=== PATIENT | male | born 1970 | race African-American/Black ===

== ENCOUNTER 2024-10-19 08:40 | Outpatient (CLI) | payer BC, SELFPAY ==
--- NOTE | ~2024-10-19 | CT_ITS ---
EXAMINATION: CT sinus wo con DATE: 10/19/2024 09:03 INDICATION: Chronic ethmoid sinusitis TECHNIQUE: Computed tomography (CT) of the paranasal sinuses was performed without intravenous contra st. The dose-length product was 274.70 mGy-cm. Automated exposure control and iterative reconstructio n technique were employed. COMPARISON: None FINDINGS: There is mucosal thickening of the frontal, there is curvature of the nasal septum. There a re surgical changes of the ostiomeatal units. Mastoids are pneumatized. Maxillary, ethmoid, sphenoid sinuses. Rightward nasal septal deviation. Mastoids are pneumatized. There is mucoperiosteal reaction of the maxillary sinuses. IMPRESSION: 1. Pansinusitis, likely chronic. Reviewed, dictated and finalized at location A.
== END 2024-10-19 08:41 | disposition home or self-care (01) ==
LOC: MICIMG 08:41
PROVIDERS: PCP Internal Medicine; Visit Provider Otolaryngology
DX: J32.2 Chronic ethmoidal sinusitis (principal); J33.8 Other polyp of sinus
CPT/HCPCS: 70486

== ENCOUNTER 2024-12-05 10:01 | Outpatient (CLI) | payer BC, SELFPAY ==
--- OUTSIDE RECORDS SUMMARY | 2024-12-05 10:07 | XMS_ITS | Clinical Summary ---
Author Organization [facility] Address [address], [address] [place] [address] Phone Care Team Providers Care Abstract Maker Name Role Phone Jim Portillo MD Primary Care Provider [phone] Allergies No known active allergies Medications aspirin 81 MG Chewable Tablet Take 81 mg by mouth. 9 Active atorvastatin (LIPITOR) 10 MG Tablet Take 10 mg by mouth. 9 Active Azilsartan-Chl orthalidone 40-12.5 MG Tablet Take 1 Tab by mouth. Active metoprolol Succinate (TOPROL-XL) 25 MG TABLET SR 24 HR Take 25 mg by mouth. Active Multiple Vitamin (MULTI-VITAMIN S) Tablet Take 1 Tab by mouth. Active fluticasone (FLONASE) 50 MCG/ACT Suspension 9 Active sildenafil citrate (VIAGRA) 50 MG Tablet sildenafil 50 mg tablet 1 tab a day as needed only Active montelukast (SINGULAIR) 10 MG Tablet 1 Active albuterol (PROVENTIL, VENTOLIN) (2.5 MG/3ML) 0.083% Nebulizer Soln 1 Active albuterol 108 (90 Base) MCG/ACT Aerosol Solution INHALE 1 PUFF BY MOUTH EVERY 4 TO 6 HOURS NEEDED 1 Active Trelegy Ellipta 200-62.5-25 MCG/INH AEROSOL POWDER, BREATH ACTIVATED 1 Active ipratropium (ATROVENT) 0.03 % Solution ipratropium bromide 21 mcg (0.03 %) nasal spray USE 2 SPRAY(S) IN EACH NOSTRIL EVERY 12 HOURS 1 Active Fasenra Pen 30 MG/ML Solution Auto-injector 1 Active EPINEPHrine (EPIPEN) 0.3 MG/0.3ML Solution Auto-injector 1 Active Mounjaro 5 MG/0.5ML Solution Pen-injector INJECT 5 MG SUBCUTANEOUSLY ONCE A WEEK 3 Active levothyroxine (SYNTHROID) 200 MCG Tablet TAKE 1 TABLET BY MOUTH ONCE DAILY IN THE MORNING 3 Active cetirizine (ZyrTEC) 10 MG Tablet Take 10 mg by mouth daily. 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 Immunizations Immunization Administration Dates Next Due Influenza Vaccine 01/16/2020 Influenza Vaccine, MDCK,quadrivalent, pres free 02/07/2019 Influenza Vaccine, Quadrivalent, PF 01/16/2020 Pneumococcal Vaccine Adult - 23 Valent 9 TDAP Vaccine 06/21/2016 Zoster Vaccine Recombinant 03/30/2020,01/16/2020 Social History Tobacco Use Types Packs/Day Years Used Date Smoking Tobacco: Former Cigarettes 1 30 0 06/22/1988 - 06/22/2018 Smokeless Tobacco: Never Tobacco Cessation:Counseling Given: Not Answered Alcohol Use Standard Drinks/Week Comments Yes 0 (1 standard drink = 0.6 oz pur e alcohol) PHQ-2 Answer Date Recorded Total Score - Questions 1-9 0 04/0 10/2021 Sex and Gender Information Value Date Recorded Sex Assigned at Not on file Legal Sex Male 11:29 AM CDT Gender Identity Not on file Sexual Orientation Not on file Last Filed Vital Signs Vital Sign Reading Time Taken Comments Blood Pressure 130/90 03/16/2024 9:15 AM CDT Pulse 71 03/16/2024 9:15 AM CDT Temperature 36.5 C (97.7 F) 03/16/2024 9:15 AM CDT Respiratory Rate 16 03/16/2024 9:15 AM CDT Oxygen Saturation 98% 03/16/2024 9:15 AM CDT Inhaled Oxygen Concentration - - Weight 120.8 kg (266 lb 6.4 oz) 03/16/2024 9:15 AM CDT Height 180.3 cm (5' 11) 03/16/2024 9:15 AM CDT Body Mass Index 37.16 03/16/2024 9:15 AM CDT Plan of Treatment Upcoming Encounters Date Type Department Care Team (Late st Contact Info) Description 03/15/2025 8:45 AM CDT Lab [facility] [address] [address] Lab, [facility] 03/15/2025 9:00 AM CDT Office Visit [facility] [address] [phone] Sachin Jeffrey MD [address] [place] [phone] Health Maintenance Due Date Last Done Comments Hepatitis C Virus (HCV) Screening 1969 Hepatitis B Immunization (1 of 3 - 19+ 3-dose series) 1988 Cologuard 2014 Colonoscopy 2014 Colorectal Cancer Screening 2014 Immunochemical Fecal Occult Blood 2014 Pneumococcal Immunization (50+ years) (2 of 2 - PCV) 02/22/2020 02/21/2019 Lung Cancer Screening 02/08/2022 02/08/2021 , 01/06/2020, 01/06/2020, Additional history exists PSA Discussion 2024 SARS-COV-2 Immunization (7 - Pfizer risk season) 2024 03/02/2024, 03/15/2023, 02/03/2022, Additional history exists Influenza Immunization (#1) 01/18/202506/2023, 03/15/2023, 02/21/2022, Additional history exists Td Immunization Every 10 Years (Adults With 1 Tdap) 02/08/2031 02/08/2021, 06/21/2016 Respiratory Syncytial Virus (RSV) Immunization (Adult) (1 - 1-dose 75+ series) 2044 Pneumococcal Immunization Combined Discontinued 02/21/2019 Zoster Immunization Completed 03/30/2020, 0 DTaP/Tdap/Td Immunization Discontinued 02/08/2021, 06/2016 Human Papillomavirus (HPV) Immunization Aged Out No longer eligible based on patient's age to complete this topic Meningococcal Immunization (ACWY) Aged Out No longer eligible based on patient's age to complete this topic Rotavirus Immunization Aged Out No lo nger eligible based on patient's age to complete this topic Procedures Procedure Name Priority Date/Time Associated Diagnosis Comments CT CHEST W CONTRAST Routine 02/08/2021 9:26 AM CDT 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 COMPARISON:. Most recent study 01/06/2020 TECHNIQUE: Helical imaging of the chest obtained with the intravenous administration of contrast. A dose lowering technique was used for this procedure, which may include, but is not limited to, dose reduction technique(s), automated exposure control techniques, use of iterative reconstruction techniques, and ALARA (as low as reasonably achievable) or ALARA/IMAGE Gently techniques. FINDINGS: CARDIOVASCULAR: Cardiac size and configuration are within normal limits. The aorta is intact without aneurysm or dissection. The pulmonary vasculature is intact without pulmonary embolism. No pericardial fluid is seen LYMPHATICS: No suspicious lymphadenopathy is appreciated. PULMONARY:No pulmonary nodules or masses are appreciated. No pleural fluid or endobronchial disease is appreciated. MUSCULOSKELETAL: No lytic or blastic lesions are seen. No destructive lesions identified. No pectoralis mass is seen. 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 Rosai Amanda diseaseprevious left chest wall mass. COMPARISON:. Most recent study 01/06/2020 TECHNIQUE: Helical imaging of the chest obtained with the intravenous administrationof contrast. A dose lowering technique was used for this procedure, which may include,but is not limited to, dose reduction technique(s), automated exposurecontrol techniques, use of iterative reconstruction techniques, and ALARA(as low as reasonably achievable) or ALARA/IMAGE Gently techniques. FINDINGS: CARDIOVASCULAR: Cardiac size and configuration are within normal limits.The aorta is intact without aneurysm or dissection. The pulmonaryvasculature is intact without pulmonary embolism. No pericardial fluid isseen LYMPHATICS: No suspicious lymphadenopathy is appreciated. PULMONARY:No pulmonary nodules or masses are appreciated. No pleuralfluid or endobronchial disease is appreciated. MUSCULOSKELETAL: No lytic or blastic lesions are seen. No destructivelesions identified. No pectoralis mass is seen. UPPER ABDOMEN: Intact IMPRESSION No acute abnormality is appreciated Electronically signed by: DONTAE ROONEY MD Date of Signature: 02/08/2021 09:47:45 Snow Guzmna APRN, CIRCULATION MANAGER IMG CT ORDERABLES Final Result from Last 3 Months or Most Recently Relevant to Health Maintenance Insurance [facility] Care Teams Abstract Maker Relationship Specialty Start Date End Date Jim Portillo MD PCP - General Internal Medicine 08/08/18
--- OUTSIDE RECORDS SUMMARY | 2024-12-05 10:07 | XMS_ITS | Encounter Summary ---
Author Organization [facility] Address [address] [place] [address] Care Team Providers Care Cheese Cooker Name Role Phone Jone Villa MD Primary Care Provider [phone] Eleno Perez MD Unavailable [phone] Encounter Details Date Type Department Care Team (Late st Contact Info) Description 11/14/2022 [employer] Message [facility] [address] [place], [place] [address] [employer], [facility] Provider Air Quality Message Social History Tobacco Use Types Packs/Day Years Used Date Smoking Tobacco: Former Cigarettes 1 30 0 05/1988 - 05/2018 Smokeless Tobacco: Never Alcohol Use Standard Drinks/Week Comments Yes 3.3 (1 standard drink = 0.6 oz p ure alcohol) AUDIT-C Answer Date Recorded Frequency of Alcohol Consumption 2-3 times a wee k 04/20/2020 Average Number of Drinks 1 or 2 020 Frequency of Binge Drinking Not on file 06/2019 PHQ-2 Answer Date Recorded Patient Health Questionnaire-2 Score 0 08/15/2022 Sex and Gender Information Value Date Recorded Sex Assigned at Male 06/22/2024 5:42 AM HAND EDGE BANDER Legal Sex Male 9:10 PM CDT Gender Identity Not on file Sexual Orientation Not on file documented as of this encounter Plan of Treatment Not on file documented as of this encounter Visit Diagnoses Not on filedocumented in this encounter Additional Health Concerns Assessment Noted Time PHQ-9 Depression Total Score: 0 07/20/19 22 9:43 AM HAND EDGE BANDER documented as of this encounter Care Teams Cheese Cooker Relationship Specialty Start Date End Date Jone Villa MD [address] [facility] [address] [place] [address] PCP - General INTERNAL MEDICINE 01/08/18 Eleno Perez MD [address] [facility]. [address] [place] [address] Taft Reference Archivist CARDIOVASCULAR DISEASE 05/14/18 documented as of this encounter
--- OUTSIDE RECORDS SUMMARY | 2024-12-05 10:07 | XMS_ITS | Clinical Summary ---
Author Organization [facility] Address [address] [place] [address] Care Team Providers Care Cork Insulation Installer Name Role Phone Jone Villa MD Primary Care Provider [phone] Eleno Perez MD Unavailable Allergies No known active allergies Medications Azilsartan-Chlor thalidone 40-12.5 MG Tab Take 1 tablet by mouth daily. Active metoprolol succinate 25 MG 24 hr tablet Take 1 tablet (25 mg total) by mouth daily. Active multivitamin tablet Take 1 tablet by mouth daily. Active aspirin 81 MG chewable tablet Chew 1 tablet (81 mg total) by mouth every other day. 30 tablet 07/23/19 19 Active atorvastatin 10 MG tablet Take 1 tablet (10 mg total) by mouth nightly at bedtime. 30 tablet 07/23/19 19 Active fluticasone propionate 50 MCG/ACT nasal spray 2 sprays by Each Nostril route daily. 5 08/07/19 19 Active ibuprofen 600 MG tablet Take 1 tablet (600 mg total) by mouth every 6 (six) hours as needed for Pain. Active sildenafil 50 MG tablet Take 1 tablet (50 mg total) by mouth as needed for Erectile Dysfunction. Active IPRATROPIUM 0.03 % nasal sprayIndications :Environmental and seasonal allergies USE 2 SPRAY(S) IN EACH NOSTRIL EVERY 12 HOURS 30 mL 06/29/19 21 Active Additional Information Patient taking differently: 2 spray Nasal 2 times daily, Reported on 08/31/2024 levothyroxine 150 MCG tablet Take 1 tablet (150 mcg total) by mouth daily. 06/30/19 21 Active EPINEPHrine 0.3 MG/0.3ML injectionIndicat ions:Severe persistent reactive airway disease without complication ([facility]) Inject 0.3 mLs (0.3 mg total) into the muscle as needed for Anaphylaxis. 1 each 1 10/06/19 21 Active MONTELUKAST 10 MG tabletIndication s:Environmental and seasonal allergies TAKE 1 TABLET BY MOUTH NIGHTLY AT BEDTIME 30 tablet 06/05/19 22 Active levothyroxine (SYNTHROID) 200 MCG tablet levothyroxine 200 mcg tablet Active MOUNJARO 5 MG/0.5ML injection INJECT 1 DOSE OF 5 MG SUBCUTANEOUSLY ONCE A WEEK Active albuterol sulfate HFA 108 (90 Base) MCG/ACT inhalerIndicatio ns:MANLEY (dyspnea on exertion) INHALE 2 PUFFS BY MOUTH EVERY 4 HOURS NEEDED FOR SHORTNESS OF BREATH AND FOR WHEEZING 9 g 01/13/20 24 Active benralizumab (FASENRA PEN) 30 MG/ML injection (pen)Indications :Severe persistent reactive airway disease without complication ([facility]) Inject 1 mL (30 mg total) into the skin Once every eight weeks. 1 each 5 05/27/19 25 Active Fluticasone-Umec lidin-Vilant (TRELEGY ELLIPTA) 200-62.5-25 MCG/ACT AEROSOL POWDER, BREATH ACTIVATEDIndicat ions:Severe persistent reactive airway disease without complication ([facility]) INHALE 1 PUFF BY MOUTH ONCE DAILY 180 each 10/21/19 25 Active Active Problems Problem Noted Date Diagnosed Date Severe persistent reactive a irway disease without complication ([facility]) 09/28/2020 MANLEY (dyspnea on exertion) 04/20/2020 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 19 Environmental and seasonal allergies 11/21/2018 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 Chest mass 07/30/2018 Essential hypertension 05/15/2018 Tobacco abuse 05/15/2018 Chest pain 05/10/2018 Obesity 10/10/2016 Obstructive sleep apnea 10/10/2016 Hypertension Resolved Problems Problem Noted Date Diagnosed Date Resolved Date Encounter for preventive health examination 10/08/2016 01/29/2020 Encounters Date Type Department Care Team Description 12/03/2024 Telephone [facility] [address] [place] [phone] Jim Hoyt MD Reschedule 09/11/2024 Scan HEALTH INFO SRVCS Scanned, Doc Med Group from Last 3 Months Immunizations Immunization Administration Dates Next Due Flucelvax 6 Months+ (Prefill ed Syringe) 02/07/2019 Fluzone 6 Months+ Quad (0.5 mL Prefilled Syringe) 01/16/2020 Influenza (Generic) 03/15/2023,02/07/2019 Influenza Adult (Generic) 02/21/2022,,01/16/2020,2018 PFIZER COVID-19 (12+) MRNA, LNP-S, PF, SHANNA-SUCROSE, 30 MCG/0.3 ML (COMIRNATY) 03/15/2023 PFIZER COVID-19 (ORIGINAL FORMULATION, PURPLE CAP) mRNA, LNP-S, PF, 30 MCG/0.3 ML DOSE 02/03/2022,04/07/2021,09/14/2020,2020 Pneumococcal (Pneumovax 23) 02/21/2019 Shingrix 03/30/2020,01/16/2020 Tdap (Generic) 02/08/2021,06/21/2016 Family History Medical History Relation Comments None Neg Hx Social History Tobacco Use Types Packs/Day Years Used Date Smoking Tobacco: Former Cigarettes 1 30 0 05/1988 - 05/2018 Smokeless Tobacco: Never Tobacco Cessation:Counseling Given: Yes Alcohol Use Standard Drinks/Week Comments Yes 3.3 (1 standard drink = 0.6 oz p ure alcohol) AUDIT-C Answer Date Recorded Frequency of Alcohol Consumption 2-3 times a wee k 04/20/2020 Average Number of Drinks 1 or 2 020 Frequency of Binge Drinking Not on file 06/2019 PHQ-2 Answer Date Recorded Patient Health Questionnaire-2 Score 0 05/25/2024 Sex and Gender Information Value Date Recorded Sex Assigned at Male 06/22/2024 5:42 AM FORENSIC SCIENCE EXAMINER Legal Sex Male 9:10 PM CDT Gender Identity Not on file Sexual Orientation Not on file Last Filed Vital Signs Vital Sign Reading Time Taken Comments Blood Pressure 122/83 08/31/2024 7:54 AM CDT Pulse 69 08/31/2024 7:54 AM CDT Temperature 36.3 C (97.4 F) 03/02/2024 10:14 AM CDT Respiratory Rate 16 08/31/2024 7:54 AM CDT Oxygen Saturation 98% 08/31/2024 7:54 AM CDT ra Inhaled Oxygen Concentration - - Weight 116.6 kg (257 lb) 08/31/2024 7:54 AM CDT Height 177.8 cm (5' 10) 08/31/2024 7:54 AM CDT Body Mass Index 36.88 08/31/2024 7:54 AM CDT Plan of Treatment Health Maintenance Due Date Last Done Comments Colorectal Cancer Screening Colonoscopy (10 Years) 1969 Annual Physical 1972 Hepatitis C 1987 Hepatitis B Vaccines (1 of 3 - 19+ 3-dose series) 1988 Lung Cancer Screening 08/31/2025 08/31/2024 , 2023, 05/30/2022, Additional history exists DTaP, Tdap and Td Vaccines (3 - Td or Tdap) 02/08/2031 02/08/2021, 06/21/2016 Zoster Vaccines Completed 03/30/2020, 01/16/2020 COVID-19 Vaccine Completed 03/02/2024, , 02/03/2022, Additional history exists PHQ-2 (Physician [place]) Completed 05/25/2024 Pneumococcal Vaccine: 50+ Years Completed 06/01/2024, 02/21/2019 Meningococcal B Vaccine Aged Out No l onger eligible based on patient's age to complete this topic Meningococcal Vaccine Aged Out No raffy heidy eligible based on patient's age to complete this topic RSV Immunizations Under 20 Months Aged Out No longer eligible based on patient's age to complete this topic Procedures Procedure Name Priority Date/Time Associated Diagnosis Comments CT LUNG SCREENING Routine 08/31/2024 7:1 9 AM CDT Cigarette nicotine dependence in remission from Last 3 Months or Most Recently Relevant to Health Maintenance Results * CT LUNG SCREENING (08/31/2024 7:19 AM CDT) Anatomical Region Laterality Modality Chest Computed Tomogra phy 09/09/2024 8:58 AM CDT Impressions 09/09/2024 9:33 AM CDT IMPRESSION: 1. Lung-RADS Category 2: Benign appearance or behavior. Nodules with a very low likelihood of becoming a clinically active cancer due to size or lack of growth. 2. LUNG-RADS category S: Negative, no new/unknown potentially significant incidental findings requiring urgent additional evaluation. 3. Other incidental findings as above. RECOMMENDATIONS: Follow-up LDCT Chest in 12 months (on or around 08/31/2025). Referred By: JIM HOYT Interpreted By: Otto Batres MD, 09/09/2024 8:58 AM Narrative 09/09/2024 9:33 AM CDT [place] [id number] EXAM: LUNG SCREENING LOW-DOSE CT THORAX WITHOUT CONTRAST DATE: 08/31/2024 HISTORY: Asymptomatic patient meeting NCCN high-risk criteria for lung screening. COMPARISON: 2023 TECHNIQUE: Noncontrast, helical, low-dose CT (LDCT) chest per standard departmental protocol. Automated exposure control was utilized for dose reduction. FINDINGS: Lung Screening Specific (LUNG-RADS): 7.3 mm groundglass right middle lobe nodule axial image 91. Stable. Lung RADS 2. Potentially Significant Incidentals (LUNG-RADS category S): None. Pulmonary Incidentals: None. Other Incidentals: Bilateral gynecomastia. Procedure Note Otto Batres MD - 09/09/2024 [place] [id number] EXAM: LUNG SCREENING LOW-DOSE CT THORAX WITHOUT CONTRAST DATE: 08/31/2024 HISTORY: Asymptomatic patient meeting NCCN high-risk criteria for lungscreening. COMPARISON: 2023 TECHNIQUE: Noncontrast, helical, low-dose CT (LDCT) chest per standarddepartmental protocol. Automated exposure control was utilized for dosereduction. FINDINGS: Lung Screening Specific (LUNG-RADS): 7.3 mm groundglass right middle lobe nodule axial image 91. Stable. LungRADS 2. Potentially Significant Incidentals (LUNG-RADS category S): None. Pulmonary Incidentals: None. Other Incidentals: Bilateral gynecomastia. IMPRESSION: 1. Lung-RADS Category 2: Benign appearance or behavior. Nodules with tarsha low likelihood of becoming a clinically active cancer due to size orlack of growth. 2. LUNG-RADS category S: Negative, no new/unknown potentially significantincidental findings requiring urgent additional evaluation. 3. Other incidental findings as above. RECOMMENDATIONS: Follow-up LDCT Chest in 12 months (on or around08/31/2025). Referred By: JIM HOYT Interpreted By: Otto Batres MD, 09/09/2024 8:58 AM Jim Hoyt MD CT Final Resul t from Last 3 Months or Most Recently Relevant to Health Maintenance Insurance [facility] Care Teams Cork Insulation Installer Relationship Specialty Start Date End Date Jone Villa MD [address] [facility] [address] [place] [id number] PCP - General INTERNAL MEDICINE 01/08/18 Eleno Perez MD [address] [facility]. [address] [place] [address] [place] Bilingual Teacher CARDIOVASCULAR DISEASE 05/14/18
--- OUTSIDE RECORDS SUMMARY | 2024-12-05 10:07 | XMS_ITS | Clinical Summary ---
Author Organization [employer] [facility] Address [address] [place] [address] Care Team Providers Care Magazine Feeder Name Role Phone Unavailable Primary Care Provider Unavailabl e Social History Tobacco Use Types Packs/Day Years Used Date Smoking Tobacco: Never Assessed Sex and Gender Information Value Date Recorded Sex Assigned at Not on file Legal Sex Male 11:15 PM CDT Gender Identity Not on file Sexual Orientation Not on file Plan of Treatment Health Maintenance Due Date Last Done Comments HEPATITIS B VACCINES (1 of 3 - 19+ 3-dose series) 06/21 COLORECTAL SCREENING 2014 Colorectal Cancer Screening 2014 FIT-DNA Q 3 years 2014 FIT/FOBT Q 1 year 2014 Flex Sig/CT Colonography Q 5 years 2014 ZOSTER VACCINE (1 of 2) 2019 INFLUENZA VACCINE (#1) 2024 02/07/2019 DTAP/TDAP/TD VACCINES (2 - Td or Tdap) 06/21/2026
--- OUTSIDE RECORDS SUMMARY | 2024-12-05 10:07 | XMS_ITS | Encounter Summary ---
Author Organization [facility] Address [facility] [place] [address] Care Team Providers Care Curbstone Setter Name Role Phone Jone Villa MD Primary Care Provider [phone] Eleno Perez MD Unavailable [phone] Encounter Details Date Type Department Care Team (Late st Contact Info) Description 10/13/2020 [employer] [facility] Patient Accounts [address] [place] [address] [facility] Provider Notice of your account balance Social History Tobacco Use Types Packs/Day Years [...] on file 06/2019 PHQ-2 Answer Date Recorded PHQ-2 Score - If the patient scores above 3, please move on to questions 3-9 0 09/28/2020 Sex and Gender Information Value Date Recorded Sex Assigned at Male 06/22/2024 5:42 AM BODY TRIMMER UPHOLSTERER Legal Sex Male 9:10 PM CDT Gender Identity Not on file Sexual Orientation Not on file COVID-19 Exposure Response Date Recorded In the last month, have you been in contact with someone who was confirmed or suspected to have Coronavirus / COVID-19? No / Unsure 09/28/2020 8:50 AM CDT documented as of this encounter Plan of Treatment Not on file documented as of this encounter Visit Diagnoses Not on filedocumented in this encounter Care Teams Curbstone Setter Relationship Specialty Start Date End Date Jone Villa MD [address] [facility] [address] [place] [phone] PCP - General INTERNAL MEDICINE 01/08/18 Eleno Perez MD Three [facility]. [facility] [address] [place] [address] [place] Refrigerator Crater CARDIOVASCULAR DISEASE 05/14/18 documented as of this encounter
--- OUTSIDE RECORDS SUMMARY | 2024-12-05 10:07 | XMS_ITS | Encounter Summary ---
Author Organization [facility] Address [address] [place] [address] Phone Care Team Providers Care Loom Changeover Operator Name Role Phone Jmi Portillo MD Primary Care Provider [phone] Encounter Details Date Type Department Care Team (Late st Contact Info) Description 07/13/2020 Telephone [facility] [address] [place] [address] Sachin Jeffrey MD [address] [place] [address] Social History Tobacco Use Types Packs/Day Years Used Date Smoking Tobacco: Former Cigarettes 1 30 0 06/22/1988 - 06/22/2018 Smokeless Tobacco: Never Alcohol Use Standard Drinks/Week Comments Yes 0 (1 standard drink = 0.6 oz pur e alcohol) PHQ-2 Answer Date Recorded Total Score - Questions 1-9 1 12/19 Sex and Gender Information Value Date Recorded Sex Assigned at Not on file Legal Sex Male 11:29 AM CDT Gender Identity Not on file Sexual Orientation Not on file documented as of this encounter Miscellaneous Notes * Telephone Encounter - Delfina Casey - 07/13/2020 1:32 PM CST CONTACTED PATIENT TO R/S HIS MISSED APPT ON 07-13-20. PATIENT AGREES TO RS FOR 07-27-20. LTR MAILED TO PATIENT WITH NEW APPT DATE/TIME. NESS DATABASE ANALYST documented in this encounter Plan of Treatment Upcoming Encounters Date Type Department Care Team (Late st Contact Info) Description 03/15/2025 8:45 AM CDT Lab [facility] [address] [phone] Lab, Cc [facility] 03/15/2025 9:00 AM CDT Office Visit [facility] [address] [phone] Sachin Jeffrey MD [address] [place] [phone] documented as of this encounter Visit Diagnoses Not on filedocumented in this encounter Additional Health Concerns Assessment Noted Time PHQ-9 Depression Total Score: 1 01/13/20 20 8:13 AM CDT documented as of this encounter Care Teams Loom Changeover Operator Relationship Specialty Start Date End Date Jim Portillo MD PCP - General Internal Medicine 08/08/18 documented as of this encounter
--- OUTSIDE RECORDS SUMMARY | 2024-12-05 10:07 | XMS_ITS | Encounter Summary ---
Author Organization [facility] Address [address] [place] [address] Care Team Providers Care Cow Puncher Name Role Phone Jone Villa MD Primary Care Provider [phone] Eleno Perez MD Unavailable [phone] Encounter Details Date Type Department Care Team (Late st Contact Info) Description 11/22/2021 enosiXt Message Enc [facility] Multispecialty Care - [address] [place] [address] Jim Portillo MD [address] [place] [address] [address] [place] [address] Cpap replacement Social History Tobacco Use Types Packs/Day Years [...] please move on to questions 3-9 0 07/19/2021 Sex and Gender Information Value Date Recorded Sex Assigned at Male 06/22/2024 5:42 AM OIL PUMP STATION OPERATOR CHIEF Legal Sex Male 9:10 PM CDT Gender Identity Not on file Sexual Orientation Not on file documented as of this encounter Plan of Treatment Not on file documented as of this encounter Visit Diagnoses Not on filedocumented in this encounter Additional Health Concerns Assessment Noted Time PHQ-9 Depression Total Score: 0 07/20/19 22 9:43 AM OIL PUMP STATION OPERATOR CHIEF documented as of this encounter Care Teams Cow Puncher Relationship Specialty Start Date End Date Jone Villa MD 331 [facility] [address] [place] [phone] PCP - General INTERNAL MEDICINE 01/08/18 Eleno Perez MD Three [facility]. [facility] [address] [place] [address] [place] Finished Hardware Erector CARDIOVASCULAR DISEASE 05/14/18 documented as of this encounter
--- OUTSIDE RECORDS SUMMARY | 2024-12-05 10:07 | XMS_ITS | Patient Health Record ---
Author Organization [facility] Address [address] [place], [place] [address] Care Team Providers Care Drafter Cartographic Name Role Phone ANASTASIATHAO CECI Mccann [phone] Jone Villa Unavailable Unavailable Allergies No Known Allergies Reason For Referral No Information Vital Signs Height-cm 157.48 cm 05/26/2024 Weight-kg 115.67 kg 05/26/2024 Height 62 in 05/26/2024 Weight 255 lbs 05/26/2024 BMI 46.64 kg/m2 05/26/2024 Encounters Encounter Location Date Provider Diagnosis [facility] [place] [address] [id number] 04/20/2024 CECI NICE 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 ; Type 2 diabetes mellitus without complications E11.9 and Pain in right foot M79.671 [facility] [place] [address] [id number] 04/28/2024 CECI NICE 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 ; Type 2 diabetes mellitus without complications E11.9 ; Flat foot [pes planus] (acquired), right foot M21.41 ; Plantar fasciitis M72.2 and Pain in right foot M79.671 [facility] [place] [address] [place], [place] [phone] 05/26/2024 CECI NICE 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 ; Type 2 diabetes mellitus without complications E11.9 ; Flat foot [pes planus] (acquired), right foot M21.41 ; Plantar fasciitis M72.2 and Pain in right foot M79.671 Assessments Encounter Date Diagnosis (ICD Code) Assessment Notes Treatment Notes Treatment Clinical Notes Section Notes 04/20/2024 Type 2 diabetes mellitus without complications (ICD-10 - E11.9) 04/20/2024 Other acquired deformities of right foot (ICD-10 - M21.6X1) 04/28/2024 Type 2 diabetes mellitus without complications (ICD-10 - E11.9) 04/28/2024 Other acquired deformities of right foot (ICD-10 - M21.6X1) Orthotic casting: The patient was casted for functional orthotic devices. This was done in the subtalar joint neutral position in a non-weightbeari ng fashion. The patient will follow-up in 3 weeks time to be dispensed and fitted with the devices. 05/26/2024 Other acquired deformities of right foot (ICD-10 - M21.6X1) 05/26/2024 Type 2 diabetes mellitus without complications (ICD-10 - E11.9) 04/28/2024 Flat foot [pes planus] (acquired), right foot (ICD-10 - M21.41) 04/20/2024 Pain in right foot (ICD-10 - M79.671) 05/26/2024 Flat foot [pes planus] (acquired), right foot (ICD-10 - M21.41) 04/28/2024 Plantar fasciitis (ICD-10 - M72.2) 05/26/2024 Plantar fasciitis (ICD-10 - M72.2) Orthotic dispense: The orthotic devices were dispensed and fitted. It was noted that the orthotic conformed well to the patients foot in the subtalar joint neutral position. 04/28/2024 Pain in right foot (ICD-10 - M79.671) 05/26/2024 Pain in right foot (ICD-10 - M79.671) 04/20/2024 Other DIABETIC FOOT CARE: Both feet were examined today. Diabetic preventive care provided as documented. Diabetic foot care education discussed today to including: daily foot inspections, appropriate protective shoe gear, and strict glycemic control. Patient to return to the office routinely for preventive diabetic foot care or sooner if patient notices any acute changes. Orthotic recommendation: Custom orthotics were recommended. Plan Of Treatment Next Appt Details Provider Name:CECI Kelly PUSHPA BAIG, 04/19/2025 08:10:00 AM, [address], [place], [place], [id number], Insurance Providers Payer Name Payer Address Payer Phone Subscriber Number Group Number Insured Name Patient Relationship to Insured Coverage Start Date Coverage End Date [facility] ([facility]) ATTN CLAIMS [address] [place] [address] [id number] Vitaliy Alston Self - patient is the insured 3 Medical (General) History Medical History History ICD Code Sleep apnea Diabetic hypertension
--- OUTSIDE RECORDS SUMMARY | 2024-12-05 10:07 | XMS_ITS | Referral Summary ---
Author Organization [facility] [address] [facility] tt Address [address] [place] [address] Care Team Providers Care Mushroom Cultivator Name Role Phone Jone Villa MD Primary Care Provider [phone] Allergies No known active allergies Medications aspirin 81 mg chewable tablet Take 81 mg by mouth daily 9 Active atorvastatin (LIPITOR) 10 mg tablet Take 1 tablet by mouth daily 9 Active azilsartan med-chlorthali done (EDARBYCLOR) 40-12.5 mg tablet Edarbyclor 40 mg-12.5 mg tablet TAKE ONE TABLET IN THE MORNING Active ergocalciferol (VITAMIN D) 50,000 unit capsule ergocalciferol (vitamin D2) 50,000 unit capsule Active fluticasone propionate (FLONASE) 50 mcg/actuation nasal spray fluticasone propionate 50 mcg/actuation nasal spray,suspension 9 Active levothyroxine (SYNTHROID) 88 mcg tablet levothyroxine 88 mcg tablet TAKE 1 TABLET BY MOUTH ONCE DAILY Active multivitamin tablet Take 1 tablet by mouth Active ipratropium (ATROVENT) 0.03 % nasal spray ipratropium bromide 0.03 % nasal spray 2 sprays each nostril twice a day Active sildenafiL (VIAGRA) 50 mg tablet sildenafil 50 mg tablet 1 tab a day as needed only Active methylPREDNISo lone (MEDROL DOSEPACK) 4 mg Dosepack Take as directed on package 1 packet 1 Active Active Problems No known active problems Social History Tobacco Use Types Packs/Day Years Used Date Smoking Tobacco: Former Smokeless Tobacco: Never Alcohol Use Standard Drinks/Week Comments Yes 0 (1 standard drink = 0.6 oz pur e alcohol) Personal Safety Answer Date Recorded Getting School Help Needed Not on file 08/02 Sex and Gender Information Value Date Recorded Sex Assigned at Not on file Legal Sex Male 7:48 PM MDS COORDINATOR Gender Identity Not on file Sexual Orientation Not on file Last Filed Vital Signs Vital Sign Reading Time Taken Comments Blood Pressure 130/77 01/05/2020 12:55 PM CDT Pulse 71 01/05/2020 12:55 PM CDT Temperature 36.7 C (98.1 F) 01/05/2020 12:55 PM CDT Respiratory Rate 17 10/05/2020 8:07 AM CDT Oxygen Saturation 98% 01/05/2020 12:55 PM CDT Inhaled Oxygen Concentration - - Weight 132 kg (291 lb) 10/05/2020 8:07 AM CDT Height 177.8 cm (5' 10) 10/05/2020 8:07 AM CDT Body Mass Index 41.75 10/05/2020 8:07 AM CDT Plan of Treatment Not on file Insurance [place] Care Teams Mushroom Cultivator Relationship Specialty Start Date End Date Jone Villa MD [address] [facility] [address] [place] [address] PCP - General Internal Medicine 03/24/19
--- OUTSIDE RECORDS SUMMARY | 2024-12-05 10:07 | XMS_ITS | Clinical Summary ---
Author Organization [facility] [address] [facility] tt Address [address] [place] [address] Care Team Providers Care Warehouse Loader Name Role Phone Jone Villa MD Primary Care Provider [phone] Allergies No known active allergies Medications aspirin [...] Active Active Problems No known active problems Surgical History Surgery Date Site/Laterality Comments SINUS SURGERY Medical History Medical History Date Comments Hyperthyroidism Hypertension Sinusitis Family History Medical History Relation Name Comments No Known Problems Father No Known Problems Mother Hypertension Sister Relation Name Status Comments Father Mother Sister Social History Tobacco Use Types Packs/Day Years Used Date Smoking Tobacco: Former Smokeless Tobacco: Never Alcohol Use Standard Drinks/Week Comments Yes 0 (1 standard drink = 0.6 oz pur e alcohol) Personal Safety Answer Date Recorded Getting School Help Needed Not on file 08/02 Sex and Gender Information Value Date Recorded Sex Assigned at Not on file Legal Sex Male 7:48 PM INHALATION THERAPIST Gender Identity Not on file Sexual Orientation Not on file Obstetrics History Last Filed Vital Signs Vital Sign Reading [...] Plan of Treatment Not on file Insurance ([place] [id number] [address] [employer] Care Teams Warehouse Loader Relationship Specialty Start Date End Date Jone Villa MD [address] [place] [address] [address] [place], [place] [phone] PCP - General Internal Medicine 03/24/19
--- NOTE | 2024-12-05 10:13 | ECG_ITS ---
Test Date: 2024-12-05 10:21:51 Measurements Intervals [place] Rate: 61 P: 29 [place]: 161 QRS: 16 QRSD: 94 T: 10 QT: 387 QTc: 390 Interpretive Statements SINUS RHYTHM WITH OCCASIONAL VENTRICULAR PREMATURE COMPLEXES OTHERWISE NORMAL ECG No previous ECG available for comparison Electronically Signed On 12-06-2024 08:00:55 CDT by Junior Medina M.D.
== END 2024-12-05 10:02 | disposition home or self-care (01) ==
LOC: ANHLAB 10:04
PROVIDERS: PCP Internal Medicine; Visit Provider Anesthesiology
DX: I10 Essential (primary) hypertension (principal); Z01.818 Encounter for other preprocedural examination
CPT/HCPCS: 93005

== ENCOUNTER 2024-12-07 01:16 | Day surgery (SDC) | payer BC, SELFPAY ==
[2024-12-03 09:28] VITALS: BMI 37.5
--- NOTE | 2024-12-03 09:39 | PC.NURSE ---
Report to the Outpatient Waiting Room, entrance under the green pavilion located off [facility], at time _0630_ on date _[id number]_. Planned Procedure Time: _0830_.? Time changes happen often and if your time is changed the preop area will call you the afternoon before. - You and your visitor will be asked to self-screen and do not enter if you have any COVID symptoms. Please call surgeon if you need to reschedule. - A mask is optional within the hospital at this time. Patients may have clear liquids (water, carbonated beverages, clear teas, apple juice) until 3 hours prior to surgery with a maximum of 20 ounces. - No food from midnight until time of surgery and no smoking, or chewing tobacco (or any form of nicotine). No chewing gum, candy or mints. Take only the following medications with a SIP of water on the morning of surgery: ___None____ DO NOT STOP ANY OF YOUR OTHER PRESCRIPTION MEDICATIONS PRIOR TO SURGERY EXCEPT THE FOLLOWING Hold all vitamins and supplements for 3 days per anesthesiologist. Medications to discontinue per physician Date to take last dose Please no make-up, nail estonian, hairspray, perfume, deodorant, or body powder the day of surgery.? No jewelry (including any body piercings) or valuables the day of surgery, leave them at home.? Please take a shower or bath the night before, or the morning of, surgery with an antibacterial soap.? Wear comfortable, loose fitting clothing.? - Jewelry must be removed prior to entering the operating room.? Rings and piercings that are not removed may be cut off. - The hospital will not accept responsibility for valuables.? - Please leave all valuables, including medications, at home the day of surgery. If you are going home after surgery, a licensed oil truck driver must drive you home.? - NO public transportation without another adult if you receive anesthesia. - We recommend that an adult stay with you for 24 hours following discharge. - We also recommend that you do not drive, make important decision, drink alcoholic beverages, or take any drugs that were not prescribed by your health care provider for at least 24 hours after your discharge time. Follow any additional instructions given to you from your surgeon. Telephone instructions given to __Vitaliy___and asked if any additional questions and then verbalized understanding. Patient advised to call surgeon office or pre surgery nurse liaison [phone] if any additional questions.
[2024-12-07] VITALS (10 sets, daily range): BP systolic 97–143; BP diastolic 56–98; PULSE 60–73; RESP 12–20; TEMP 36.9; O2SAT 96–100; BMI 37.0
--- OUTSIDE RECORDS SUMMARY | 2024-12-07 01:17 | XMS_ITS | Encounter Summary ---
Author Organization [facility] Address [address] [place] [address] Care Team Providers Care Mechanic General Operational Test Name Role Phone Jone Villa MD Primary Care Provider [phone] Eleno Perez MD Unavailable [phone] Encounter Details Date Type Department Care Team (Late st Contact Info) Description 11/14/2022 Rentables Message [facility] [address] [place], [place] [address] [employer], [facility] Provider Air Quality Message Social [...] Sex Assigned at Male 06/22/2024 5:42 AM TRAVELING PASSENGER AGENT Legal Sex Male 9:10 PM CDT Gender Identity Not on file Sexual Orientation Not on file documented as of this encounter Plan of Treatment Not on file documented as of this encounter Visit Diagnoses Not on filedocumented in this encounter Additional Health Concerns Assessment Noted Time PHQ-9 Depression Total Score: 0 07/20/19 22 9:43 AM TRAVELING PASSENGER AGENT documented as of this encounter Care Teams Mechanic General Operational Test Relationship Specialty Start Date End Date Jone Villa MD 331 [facility] [address] [place] [address] PCP - General INTERNAL MEDICINE 01/08/18 Eleno Perez MD Three [facility]. [address] [place] [address] [place] Beading Installer CARDIOVASCULAR DISEASE 05/14/18 documented as of this encounter
--- OUTSIDE RECORDS SUMMARY | 2024-12-07 01:17 | XMS_ITS | Encounter Summary ---
Author Organization [facility] Address [address] [place] [address] Care Team Providers Care Family Physician Name Role Phone Jone Villa MD Primary Care Provider [phone] Eleno Perez MD Unavailable [phone] Encounter Details Date Type Department Care Team (Late st Contact Info) Description 11/22/2021 CDB Infotekt Message Enc [facility] Multispecialty Care - [address] [place] [address] Jim Portillo MD [address] [place] [address] [address] [place] [address] Cpap replacement Social History Tobacco Use Types [...] Sex Assigned at Male 06/22/2024 5:42 AM PRODUCE WRAPPER Legal Sex Male 9:10 PM CDT Gender Identity Not on file Sexual Orientation Not on file documented as of this encounter Plan of Treatment Not on file documented as of this encounter Visit Diagnoses Not on filedocumented in this encounter Additional Health Concerns Assessment Noted Time PHQ-9 Depression Total Score: 0 07/20/19 22 9:43 AM PRODUCE WRAPPER documented as of this encounter Care Teams Family Physician Relationship Specialty Start Date End Date Jone Villa MD 331 [facility] [address] [place] [phone] PCP - General INTERNAL MEDICINE 01/08/18 Eleno Perez MD Three [facility]. [facility] [address] [place] [address] [place] Quality Technician Fiberglass CARDIOVASCULAR DISEASE 05/14/18 documented as of this encounter
--- OUTSIDE RECORDS SUMMARY | 2024-12-07 01:17 | XMS_ITS | Clinical Summary ---
Author Organization [facility] [address] [facility] tt Address [address] [place] [address] Care Team Providers Care Charge Preparation Technician Name Role Phone Jone Villa MD Primary Care Provider [phone] Allergies No known active allergies Medications aspirin [...] on file Legal Sex Male 7:48 PM MAIL ORDER SORTER Gender Identity Not on file Sexual Orientation [...] Plan of Treatment Not on file Insurance ([place] [id number] [place] Care Teams Charge Preparation Technician Relationship Specialty Start Date End Date Jone Villa MD [address] [place] [address] [address] [place], [place] [phone] PCP - General Internal Medicine 03/24/19
--- OUTSIDE RECORDS SUMMARY | 2024-12-07 01:17 | XMS_ITS | Referral Summary ---
Author Organization [facility] [address] [facility] tt Address [address] [place] [address] Care Team Providers Care Party Plan Selling Distributor Name Role Phone Jone Villa MD Primary Care Provider [phone] Allergies No known active allergies Medications aspirin [...] on file Legal Sex Male 7:48 PM SUBSTANCE ADDICTION COORDINATOR Gender Identity Not on file Sexual [...] [place] Care Teams Party Plan Selling Distributor Relationship Specialty Start Date End Date Jone Villa MD 331 [facility] [address] [place] [address] PCP - General Internal Medicine 03/24/19
--- OUTSIDE RECORDS SUMMARY | 2024-12-07 01:17 | XMS_ITS | Clinical Summary ---
Author Organization [facility] Address [address] [place] [address] Phone Care Team Providers Care Cash Analyst Name Role Phone Jim Portillo MD Primary Care Provider [phone] Allergies No known active allergies Medications aspirin [...] AM CDT Lab [facility] [address] [address] Lab, Cc [facility] 03/15/2025 9:00 AM CDT Office Visit [facility] [address] [address] Sachin Jeffrey MD [address] [place] [address] Health Maintenance Due Date Last Done [...] MD Date of Signature: 02/08/2021 09:47:45 Snow Guzman APRN, PIER MASTER ASSISTANT IMG CT ORDERABLES Final Result from Last 3 Months or Most Recently Relevant to Health Maintenance Insurance [facility] Care Teams Cash Analyst Relationship Specialty Start Date End Date Jim Portillo MD PCP - General Internal Medicine 08/08/18
--- OUTSIDE RECORDS SUMMARY | 2024-12-07 01:18 | XMS_ITS | Clinical Summary ---
Author Organization [facility] Address [address] [place] [address] Care Team Providers Care Sales Lead Generator Name Role Phone Unavailable Primary Care Provider [...]
--- OUTSIDE RECORDS SUMMARY | 2024-12-07 01:18 | XMS_ITS | Patient Health Record ---
Author Organization [facility] Address [address] [place], [place] [address] Care Team Providers Care Cutter Machine Name Role Phone ANASTASIATHAO CECI Mccann [phone] Jone Villa Unavailable Unavailable Allergies No Known Allergies Reason For Referral No Information Vital Signs Height-cm 157.48 cm 05/26/2024 Weight-kg 115.67 kg 05/26/2024 Height 62 in 05/26/2024 Weight 255 lbs 05/26/2024 BMI 46.64 kg/m2 05/26/2024 Encounters Encounter Location Date Provider Diagnosis [facility] [place] [address] [id number] 04/20/2024 CECI NICE 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 ; Type 2 diabetes mellitus without complications E11.9 and Pain in right foot M79.671 [facility] [address] [id number] 04/28/2024 CECI NIEC 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 ; Type 2 diabetes mellitus without complications E11.9 ; Flat foot [pes planus] (acquired), right foot M21.41 ; Plantar fasciitis M72.2 and Pain in right foot M79.671 [facility] [address] [place], [place] [phone] 05/26/2024 CECI NICE Other acquired deformities of [...] [address], [place], [place], [id number], Insurance Providers Payer Name Payer Address Payer Phone Subscriber Number Group Number Insured Name Patient Relationship to Insured Coverage Start Date Coverage End Date [facility] ([facility]) ATTN CLAIMS [address] [place] [address] [id number] Vitaliy Alston Self - patient is the insured 3 Medical (General) History Medical History History ICD Code Sleep apnea Diabetic hypertension
--- OUTSIDE RECORDS SUMMARY | 2024-12-07 01:18 | XMS_ITS | Encounter Summary ---
Author Organization [facility] Address Formerly [facility] [place] [address] Care Team Providers Care Commercial Lines Assistant Name Role Phone Jone Villa MD Primary Care Provider [phone] Eleno Perez MD Unavailable [phone] Encounter Details Date Type Department Care Team (Late st Contact Info) Description 10/13/[email or web address] [facility] Patient Accounts [address] [place] [address] [facility] Provider Notice of your account balance Social [...] Sex Assigned at Male 06/22/2024 5:42 AM POST ADOPTION COORDINATOR Legal Sex Male 9:10 PM CDT Gender [...] on filedocumented in this encounter Care Teams Commercial Lines Assistant Relationship Specialty Start Date End Date Jone Villa MD [address] [facility] [address] [place] [phone] PCP - General INTERNAL MEDICINE 01/08/18 Eleno Perez MD Three [facility]. [facility] [address] [place] [address] [place] Director Packaging CARDIOVASCULAR DISEASE 05/14/18 documented as of this encounter
--- OUTSIDE RECORDS SUMMARY | 2024-12-07 01:18 | XMS_ITS | Clinical Summary ---
Author Organization [facility] Address [address] [place] [address] Care Team Providers Care Customer Pricing Manager Name Role Phone Jone Villa MD Primary Care Provider [phone] Eleno Perez MD Unavailable [phone] Allergies No known active allergies Medications Azilsartan-Chlor [...] ions:Severe persistent reactive airway disease without complication ([facility]) Inject 0.3 mLs (0.3 mg total) into [...] :Severe persistent reactive airway disease without complication ([facility]) Inject 1 mL (30 mg total) into the skin Once every eight weeks. 1 each 5 05/27/19 25 Active Fluticasone-Umec lidin-Vilant (TRELEGY ELLIPTA) 200-62.5-25 MCG/ACT AEROSOL POWDER, BREATH ACTIVATEDIndicat ions:Severe persistent reactive airway disease without complication ([facility]) INHALE 1 PUFF BY MOUTH ONCE DAILY 180 each 10/21/19 25 Active Active Problems Problem Noted Date Diagnosed Date Severe persistent reactive a irway disease without complication ([facility]) 09/28/2020 MANLEY (dyspnea on exertion) 04/20/2020 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 19 Environmental and seasonal allergies 11/21/2018 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 [address] [place] [phone] Jim Hoyt MD Reschedule 09/11/2024 Scan [...] Sex Assigned at Male 06/22/2024 5:42 AM DREDGE PIPE INSTALLER Legal Sex Male 9:10 PM CDT Gender [...] , 02/03/2022, Additional history exists PHQ-2 (Physician [place]) Completed 05/25/2024 Pneumococcal Vaccine: 50+ Years Completed [...] 8:58 AM Narrative 09/09/2024 9:33 AM CDT [place] [address] EXAM: LUNG SCREENING LOW-DOSE CT THORAX WITHOUT [...] Procedure Note Otto Batres MD - 09/09/2024 [place] [address] EXAM: LUNG SCREENING LOW-DOSE CT THORAX WITHOUT [...] Most Recently Relevant to Health Maintenance Insurance [facility] Care Teams Customer Pricing Manager Relationship Specialty Start Date End Date Jone Villa MD [address] [facility] [address] [place] [phone] PCP - General INTERNAL MEDICINE 01/08/18 Eleno Perez MD Three [facility]. [facility] [address] [place] [address] [place] Photolithographic Stripper CARDIOVASCULAR DISEASE 05/14/18
--- OUTSIDE RECORDS SUMMARY | 2024-12-07 01:18 | XMS_ITS | Encounter Summary ---
Author Organization [facility] Address [address] [place] [address] Phone Care Team Providers Care Crime Prevention Police Officer Name Role Phone Jim Portillo MD Primary Care Provider Encounter Details Date Type Department Care Team (Late st Contact Info) Description 07/13/2020 Telephone [facility] [address] [place] [address] Sachin Jeffrey MD [address] [place] [address] Social History Tobacco Use Types [...] MAILED TO PATIENT WITH NEW APPT DATE/TIME. [employer] SALES documented in this encounter Plan of Treatment Upcoming Encounters Date Type Department Care Team (Late st Contact Info) Description 03/15/2025 8:45 AM CDT Lab [facility] [address] [phone] Lab, Cc [facility] 03/15/2025 9:00 AM CDT Office Visit [facility] [address] [phone] Sachin Jeffrey MD [address] [place] [phone] documented as of this encounter Visit Diagnoses Not on filedocumented in this encounter Additional Health Concerns Assessment Noted Time PHQ-9 Depression Total Score: 1 01/13/20 20 8:13 AM CDT documented as of this encounter Care Teams Crime Prevention Police Officer Relationship Specialty Start Date End Date Jim Portillo MD PCP - General Internal Medicine 08/08/18 documented as of this encounter
[2024-12-07] MEDS: LACTATED RINGERS 1,000 ML 30 ML IV CONT ×2 (07:25→11:42)
--- NOTE | 2024-12-07 07:25 | WPDHPUPDATE1 ---
History and Physical Update Update Date/Time: 12/07/24 07:25 History and Physical has been reviewed, including an updated exam of the patient. There are NO changes in the patient's condition. Risks, benefits, and alternatives have been discussed and questions answered. Patient agrees to proceed with procedure.
[2024-12-07] MEDS: ACETAMINOPHEN 500 MG TABLET 1000 MG PO (07:35)
--- NOTE | 2024-12-07 07:43 | P.PNAN_ITS ---
Anes - Initial Pre Proc Eval Procedure: Operation Date: 12/07/24 08:30 Proposed Procedures p Image Guided Endoscopic Bilateral Maxillary Antrostomy, Bilateral Total Ethmoidectomy, Bilateral Frontal Sinusotomy, Bilateral Sphenoidotomy, - Bradley Norton MD s Endoscopic Septoplasty - Bradley Norton MD Date/Time: 12/07/24 07:43 Surgeon: Bradley Norton MD Pre Op Diagnosis: pansinusitis, deviated septum, sinus polyp Patient Data Age: 54 Gender: M Height: 1.78 m Weight: 118.6 kg Allergies Allergy/AdvReac Type Severity Reaction Status Date / Time No Known Allergies Allergy Unverified 12/03/24 09:24 Home Medications ?Medication ?Instructions ?Recorded ?Confirmed ?Type atorvastatin 10 mg tablet 10 mg PO HS 04/28/24 12/03/24 History azilsartan medoxomil 40 1 tablet PO HS 04/28/24 12/03/24 History mg-chlorthalidone 12.5 mg tablet (Edarbyclor) fluticasone propionate 50 2 spray intranasal BID PRN allergy 04/28/24 12/03/24 History mcg/actuation nasal symptoms spray,suspension levothyroxine 112 mcg tablet 112 mcg PO HS 04/28/24 12/03/24 History metoprolol succinate 25 mg 25 mg PO HS 04/28/24 12/03/24 History tablet,extended release 24 hr sildenafil 50 mg tablet mg PO 04/28/24 10/30/24 History tirzepatide 7.5 mg/0.5 mL 7.5 mg subcut WEEKLY 04/28/24 12/03/24 History subcutaneous pen injector (Mounjaro) benralizumab 30 mg/mL subcutaneous 30 mg subcut Q60D 10/23/24 12/03/24 History auto-injector (Fasenra Pen) fluticasone fur. 200 mcg-umeclid 1 inh inhalation HS 10/23/24 12/03/24 History 62.5 mcg-vilant 25 mcg inhalat.powder (Trelegy Ellipta) vitamin B complex (Complex B-100 1 tablet PO HS 12/03/24 12/03/24 History tablet,extended release) Laboratory Tests 12/07/24 07:29 POC Capillary Glucose 93 mg/dl (65-105) Patient hx anesthesia problems: none Family hx anesthesia problems: none Results Review: All pre-operative results and documents have been reviewed as part of the pre- operative evaluation. [facility] Past Medical History Medical History HTN (hypertension) Family History Family History Mother Thyroid disorder Social History Social History Social History: Caffeine-coffee Years smoked: 35 Smoking status: Former smoker Tobacco type: cigarettes Smoking end date: 12/03/17 Alcohol intake: current Drinks per week: 6 Substance use: never Substance use type: does not use Do You Feel Safe in your Home?: Yes Lack of Transportation: No Lack of Food: Never True Current Housing: I Have Housing Concerned About Future Housing: No Difficulty Paying Gas/Electric Bills: No Difficulty Paying for Meds: YES Currently Unemployed: No Education: Trade/Vocational Certificate Difficulty w/ Childcare or Family Care: No Living arrangements: with family Spiritual care concerns: No Anes - Eval Final PreProcedure Day of Procedure 12/07/24 07:43 Patient weight: obese Heart: regular rate and rhythm Lungs: clear to auscultation Airway: Mallampati scale class III Neurological: alert and oriented Last oral intake: >/= 8 hours ASA classification: III Emergent: no Anesthetic plan: proceed Anesthesia type and monitoring: general ETT and standard monitoring Results Review: All pre-operative results and documents have been reviewed as part of the pre- operative evaluation. Informed Consent: The patient's anesthetic plan and its attendant risks and benefits were discussed with the patient/family/POA. Questions were solicited and answers provided to the satisfaction of the patient/family/POA.
--- NOTE | 2024-12-07 08:20 | PM.IMHP ---
H&P: HPI History of Present Illness Date/Time: 12/07/24 08:20 Chief Complaint: Nasal obstruction chronic sinusitis recurrent sinusitis Review of Systems Review of Systems: All systems reviewed & are unremarkable except as noted in HPI and below [facility] Past Medical History Medical History HTN (hypertension) Family History Family History Mother Thyroid disorder Social History Social History Social History: Caffeine-coffee Years smoked: 35 Smoking status: Former smoker Tobacco type: cigarettes Smoking end date: 12/03/17 Alcohol intake: current Drinks per week: 6 Substance use: never Substance use type: does not use Do You Feel Safe in your Home?: Yes Lack of Transportation: No Lack of Food: Never True Current Housing: I Have Housing Concerned About Future Housing: No Difficulty Paying Gas/Electric Bills: No Difficulty Paying for Meds: YES Currently Unemployed: No Education: Trade/Vocational Certificate Difficulty w/ Childcare or Family Care: No Living arrangements: with family Spiritual care concerns: No Meds Home Medications and Allergies Home Medications ?Medication ?Instructions ?Recorded ?Confirmed ?Type atorvastatin 10 mg tablet 10 mg PO HS 04/28/24 12/03/24 History azilsartan medoxomil 40 1 tablet PO HS 04/28/24 12/03/24 History mg-chlorthalidone 12.5 mg tablet (Edarbyclor) fluticasone propionate 50 2 spray intranasal BID PRN allergy 04/28/24 12/03/24 History mcg/actuation nasal symptoms spray,suspension levothyroxine 112 mcg tablet 112 mcg PO HS 04/28/24 12/03/24 History metoprolol succinate 25 mg 25 mg PO HS 04/28/24 12/03/24 History tablet,extended release 24 hr sildenafil 50 mg tablet mg PO 04/28/24 10/30/24 History tirzepatide 7.5 mg/0.5 mL 7.5 mg subcut WEEKLY 04/28/24 12/03/24 History subcutaneous pen injector (Christina) benralizumab 30 mg/mL subcutaneous 30 mg subcut Q60D 10/23/24 12/03/24 History auto-injector (Fasenra Pen) fluticasone fur. 200 mcg-umeclid 1 inh inhalation HS 10/23/24 12/03/24 History 62.5 mcg-vilant 25 mcg inhalat.powder (Trelegy Ellipta) vitamin B complex (Complex B-100 1 tablet PO HS 12/03/24 12/03/24 History tablet,extended release) Allergies Allergy/AdvReac Type Severity Reaction Status Date / Time No Known Allergies Allergy Verified 12/07/24 08:03 Vital Signs Vital Signs - 24 hr 12/07/24 06:40 Temperature 36.9 C Pulse Rate 70 Respiratory Rate 18 Blood Pressure 108/80 Pulse Oximetry 100 Oxygen Delivery Room Air Exam Narrative: Septal deviation turbinate hypertrophy acute on chronic appearing sinuses Assessment and Plan Assessment and plan (1) Chronic ethmoidal sinusitis: Code(s): J32.2 - Chronic ethmoidal sinusitis Status: Acute Assessment and Plan: Plan OR bilateral sinus surgery, septoplasty, turbinate reduction possible please see previous H&P our clinic documentation for risks discussed. (2) Ethmoid polyps: Code(s): J33.8 - Other polyp of sinus Status: Acute (3) Chronic right maxillary sinusitis: Code(s): J32.0 - Chronic maxillary sinusitis Status: Acute (4) Chronic pansinusitis: Code(s): J32.4 - Chronic pansinusitis Status: Acute (5) Nasal septal deviation: Code(s): J34.2 - Deviated nasal septum Status: Acute
[2024-12-07] MEDS: ceFAZolin 2 GM in SODIUM CHLORIDE 0.9% IV 50 ML 100 ML IVPB (08:29)
[2024-12-07] MEDS: OXYMETAZOLINE HCL 0.05% NAS 15 ML BTL (*BKC) 1 SPRAY NASAL (09:31)
[2024-12-07] MEDS: LIDO 1%/EPINEPHRINE 1:100,000 50 ML VIAL INFILTRATE (09:32)
[2024-12-07] MEDS: TOBRAMYCIN SULFATE 80 MG/2 ML VIAL 400 MG IRRIGATION (09:33)
[2024-12-07] MEDS: MUPIROCIN 2% OINT 22 GM TUBE 1 APPLIC TOPICAL (10:48)
[2024-12-07] MEDS: fentaNYL CITRATE INJ (*CRX) 100 MCG/2 ML VIAL 25 MCG IV PUSH ×8 (11:58→12:14)
--- NOTE | 2024-12-07 12:06 | W.PM.PROC2 ---
Procedure Note - Detailed Date of Procedure 12/07/24 Pre-op Diagnosis pansinusitis, deviated septum, sinus polyp Post-op Diagnosis Same Procedure Performed 1. Bilateral endoscopic middle turbinectomies, 2. Endoscopic assisted septoplasty, 3. Left-sided endoscopic image guided maxillary antrostomy 4. Left-sided image guided endoscopic total ethmoidectomy 5. Left-sided image guided endoscopic sphenoidotomy with tissue room 6. Left-sided image guided frontal sinusotomy with tissue removal 7. Right-sided image guided endoscopic maxillary antrostomy with tissue removed number size 8 right-sided image guided total ethmoidectomy with tissue removal 9. Right-sided sphenoidotomy endoscopic image guided tissue removal 10. Right-sided frontal sinusotomy image guided endoscopic with tissue rim 11. Polypectomy Surgeon Bradley Norton MD Anesthesia General Indications See above Findings Disease tissue left sphenoid left frontal and all the right sinuses necessitating tissue removal severe polyposis severely right D were deviated septum severely polypoid and polyp purulent filled middle turbinates necessitating excision bilaterally. Description of Procedure Patient identified consent verified the preoperative holding area. Patient brought to the middle the patient brought to the operating room. Time-out performed. General anesthesia induced endotracheal tube secured the patient prepped draped position procedure confirmed 2nd time-out performed. Image guidance initiated confirmed. 0 degree endoscope utilized throughout the procedure until the 70 was. [place] incision total 18 cc 1% lidocaine 1 100,000 parts epinephrine injected the bilateral nasal septum and middle turbinates talks. Nasal septum left-sided Evens incision made with a 15 blade. Left nasal septal flap elevated with 7 Swedish suction. Osteotome utilized to cross through. Right nasal septal flap elevated 7 Swedish suction. Deviated septum removed with Cristina forceps Papo [place] forceps and osteotome. The septum was rinsed out closed anteriorly with 4 interrupted 5 0 fast gut sutures. The middle turbinates were purulence filled and full of polyps. They were excised bilaterally using a straight through cut the stumps were then cauterized using Bovie suction electrocautery setting of 15. Bilateral maxillary antrostomies performed with image guidance backbiter straight through cut and double ball tip probe. 70 degree scope was utilized to ensure that the natural os connected to the surgical os. Right side had tissue removal. Total ethmoidectomy performed bilaterally using image guidance microdebrider Kerr[place] and straight through cut. Great choice care was taken to ensure to not injure the skull base orbit or septum. Right side had tissue removal. Sphenoidotomy performed bilaterally using [place] image guidance Kerrison sphenoid punch bilaterally they had tissue that was removed as well as purulence. Frontal sinusotomies performed bilaterally using a 70 degree camera as well as 70 degree image guided suction. An up-biting instruments including a rad 60 microdebrider draft instruments Sravan and Tali. Right-sided and left-sided head tissue removal. At this time the wounds were copiously irrigated out with tobramycin in few sterile normal saline. Kevin splints were placed bilaterally after Nova pack was placed bilaterally. The Kevin splints were sutured anteriorly using a 3-0 mattress nylon suture. I performed all dictated portions of procedure the no complications. Care the patient given Anesthesiology patient taken to PACU. Estimated Blood Loss 35 Drains No Packing Yes (Nova pack) Pathology None sent Complications No immediate complications Condition Stable Disposition PACU [facility] Billing Surgery - Charge Forward: Surgery Billing
[2024-12-07] MEDS: HYDROmorphone HCL INJ (*CRX) 1 MG/ML SYR 0.5 MG IV PUSH ×2 (12:26→12:31)
[2024-12-07] MEDS: oxyCODONE HCL (*CRX) 5 MG TAB IR PO (12:56)
== END 2024-12-07 13:45 | disposition home or self-care (01) ==
PROVIDERS: PCP Internal Medicine; Visit Provider Otolaryngology
PROC: (CPT 31257; principal; 2024-12-07 08:30)
PROC: (CPT 30520; 2024-12-07 08:30)
DX: J32.4 Chronic pansinusitis (principal); J34.2 Deviated nasal septum; J33.8 Other polyp of sinus; J32.2 Chronic ethmoidal sinusitis; J32.0 Chronic maxillary sinusitis; Z87.891 Personal history of nicotine dependence; E66.9 Obesity, unspecified; Z68.37 Body mass index [BMI] 37.0-37.9, adult; Z79.85 Long-term (current) use of injectable non-insulin antidiabetic drugs
CPT/HCPCS: 31257; 31276; 31267; 31256; 61782; 30520; 82948; J0690; A9270; J0330; J1100; J1171; J2003; J2004; J2405; J2704; J3010; J3260; J7030; J7040; J7120